=== PATIENT | female | born 1980 | race Caucasian/White ===

== ENCOUNTER 2022-11-05 11:17 | Outpatient (CLI) | payer OTHER, SELFPAY ==
--- NOTE | 2022-11-05 11:30 | CRLHL7_ITS ---
For Patients: As a result of the Century Cures Act, medical imaging exams and procedure reports are released immediately into your electronic medical record. You may view this report before your referring provider. If you have questions, please contact your health care provider. BILATERAL SCREENING MAMMOGRAM WITH COMPUTER-AIDED DETECTION AND TOMOSYNTHESIS TECHNIQUE: CC and MLO views were obtained. These mammographic images have been obtained using full-field digital technique. These mammographic images were interpreted with the benefit of computer-aided detection. Breast Tomosynthesis was used in this interpretation. COMPARISON FILM: 12/02/20, Rt Diag. 09/26/20, 09/19/20. FINDINGS: There are scattered areas of fibroglandular density IMPRESSION: There is no radiographic evidence for malignancy. ASSESSMENT: BI-RADS Category 1: Negative RECOMMENDATION: Routine screening mammogram in 1 year. A lay language report of this examination will be provided to the patient. Malik Dean M.D. Diagnostic Radiologist [email or web address] SIVAN/caprice Transcribed: 1:13 p.m. PT/Dictated by: Malik Dean MD @ 11/06/2022 8:49:00 AM (Electronically Signed)
== END 2022-11-05 11:18 | disposition home or self-care (01) ==
LOC: MAMMO 11:17
PROVIDERS: PCP Physician Assistant Medical; Visit Provider Physician Assistant
DX: Z12.31 Encounter for screening mammogram for malignant neoplasm of breast (principal)
CPT/HCPCS: 77063; 77067

== ENCOUNTER 2023-02-19 08:38 | Outpatient (CLI) | payer OTHER, SELFPAY | END 2023-02-19 08:39 | disposition home or self-care (01) | LOC: NFLDREF 02-21 07:42 | PROVIDERS: PCP Physician Assistant Medical; Referring Provider Physician Assistant Medical; Visit Provider Physician Assistant Medical | DX: Z00.00 Encounter for general adult medical examination without abnormal findings (principal); D64.9 Anemia, unspecified; F41.1 Generalized anxiety disorder; K58.9 Irritable bowel syndrome, unspecified; F41.9 Anxiety disorder, unspecified; K59.09 Other constipation | CPT/HCPCS: 80053; 80061; 82607; 83540; 83550; 84443 ==

== ENCOUNTER 2023-07-23 14:55 | Outpatient (CLI) | payer OTHER, SELFPAY | END 2023-07-23 14:56 | disposition home or self-care (01) | PROVIDERS: PCP Physician Assistant Medical; Visit Provider Emergency Medicine | DX: E61.1 Iron deficiency (principal); R53.83 Other fatigue; E53.8 Deficiency of other specified B group vitamins; D64.9 Anemia, unspecified; R30.0 Dysuria; F41.1 Generalized anxiety disorder | CPT/HCPCS: 80053; 82306; 82607; 82728; 82746; 83540; 83550; 86618; 87086 ==

== ENCOUNTER 2023-08-12 12:48 | Outpatient (CLI) | payer OTHER, SELFPAY ==
--- NOTE | 2023-08-12 13:00 | CRLHL7_ITS ---
For Patients: As a result of the Century Cures Act, medical imaging exams and procedure reports are released immediately into your electronic medical record. You may view this report before your referring provider. If you have questions, please contact your health care provider. INDICATION: Iron deficiency anemia COMPARISON: CT 03/20/2022, pelvic ultrasound 09/26/2021 TECHNIQUE: TA: Multiple transverse and longitudinal transabdominal images of the pelvis are performed using the distended bladder as an acoustic window. TV: Transvaginal ultrasound of the pelvis was performed to better visualize the genitourinary organs, such as the ovaries and/or endometrium. FINDINGS: Reported last menstrual period: 07/24/2023. The uterus is normal in size and position and measures 8.1 x 4.8 x 5.8 cm. No uterine masses. The endometrial stripe measures 1.3 cm in double thickness. No endometrial masses. The cervix is normal. The right ovary measures 3.6 x 1.9 x 2.7 cm. Right paraovarian cyst measures 1.4 x 0.8 x 0.9 cm. No worrisome solid or cystic lesion. There is normal arterial and venous color Doppler flow. The left ovary measures 4.2 x 2.0 x 2.9 cm. 3.0 x 1.6 x 2.1 cm cyst with lace-like internal echoes, consistent with a hemorrhagic cyst. These are considered physiologic at this size in a patient of this age. There is normal arterial and venous color Doppler flow. No free fluid. IMPRESSION: Normal pelvic ultrasound. Dictated by Fabi Salter MD @ 08/14/2023 11:20:59 AM (Electronically Signed)
== END 2023-08-12 12:49 | disposition home or self-care (01) ==
LOC: US 12:49
PROVIDERS: PCP Physician Assistant Medical; Visit Provider Emergency Medicine
DX: D50.9 Iron deficiency anemia, unspecified (principal); N92.0 Excessive and frequent menstruation with regular cycle
CPT/HCPCS: 76830; 76856

== ENCOUNTER 2023-09-01 08:45 | Outpatient (RCR) | payer OTHER, SELFPAY ==
--- NOTE | 2023-08-17 09:21 | URNOTE ---
Request received for authorization for?Iron Sucrose (Venofer) (J1756). Prior authorization is not required per [facility] Case#[id number]. Request for Ferumoxytol (Feraheme) (Q0138) was denied by [facility] Ref# [id number], see scanned letter.
[2023-08-18 10:00] VITALS: BP 99/51; PULSE 53; RESP 16; TEMP 36.7
[2023-08-18] MEDS: IRON SUCROSE COMPLEX 200 MG in 0.9 % SODIUM CHLORIDE 100 ml 440 MG IVPB (10:23)
[2023-08-18 11:15] VITALS: BP 107/71; PULSE 53
[2023-08-18] MEDS: 0.9 % SODIUM CHLORIDE 250 ml IV (15:43)
[2023-08-18] MEDS: SODIUM CHLORIDE 0.9 % (FLUSH) 10 ML SYRINGE IVF (15:44)
[2023-08-24 11:13] VITALS: BP 100/61; PULSE 54; RESP 16; TEMP 36.7; O2SAT 100
[2023-08-24] MEDS: IRON SUCROSE COMPLEX 200 MG in 0.9 % SODIUM CHLORIDE 100 ml 440 MG IVPB (11:47)
[2023-08-24] MEDS: SODIUM CHLORIDE 0.9 % (FLUSH) 10 ML SYRINGE IVF (11:47)
[2023-08-24] MEDS: 0.9 % SODIUM CHLORIDE 250 ml IV (11:47)
[2023-08-26 13:46] VITALS: BP 95/47; PULSE 49; RESP 16; TEMP 36.4; O2SAT 100
[2023-08-26] MEDS: 0.9 % SODIUM CHLORIDE 250 ml IV (14:04)
[2023-08-26] MEDS: IRON SUCROSE COMPLEX 200 MG in 0.9 % SODIUM CHLORIDE 100 ml 440 MG IVPB (14:04)
[2023-08-26] MEDS: SODIUM CHLORIDE 0.9 % (FLUSH) 10 ML SYRINGE IVF (14:04)
[2023-08-26 14:40] VITALS: BP 101/51; PULSE 51; RESP 16; TEMP 36.6; O2SAT 99
[2023-08-28 10:00] VITALS: BP 93/49; PULSE 47; RESP 16; TEMP 36.1; O2SAT 100
[2023-08-28] MEDS: IRON SUCROSE COMPLEX 200 MG in 0.9 % SODIUM CHLORIDE 100 ml 440 MG IVPB (10:11)
[2023-08-28] MEDS: SODIUM CHLORIDE 0.9 % (FLUSH) 10 ML SYRINGE IVF (10:12)
[2023-08-28 11:15] VITALS: BP 101/62; PULSE 45; RESP 15; TEMP 36.6; O2SAT 100
[2023-09-01 08:41] VITALS: BP 109/70; PULSE 50; RESP 16; TEMP 36.4; O2SAT 100
[2023-09-01] MEDS: IRON SUCROSE COMPLEX 200 MG in 0.9 % SODIUM CHLORIDE 100 ml 440 MG IVPB (09:04)
[2023-09-01] MEDS: SODIUM CHLORIDE 0.9 % (FLUSH) 10 ML SYRINGE IVF (09:06)
[2023-09-01] MEDS: 0.9 % SODIUM CHLORIDE 250 ml IV (09:06)
[2023-09-01 09:32] VITALS: BP 101/64; PULSE 46; RESP 16; TEMP 36.5; O2SAT 100
[2023-09-01 10:15] VITALS: BP 108/70; PULSE 47; RESP 16; TEMP 37.1; O2SAT 100
== END 2024-02-14 23:59 | disposition home or self-care (01) ==
LOC: CCIC 08:45
PROVIDERS: PCP Emergency Medicine; Referring Provider Physician Assistant Medical; Visit Provider Clinical Nurse Specialist
DX: D50.9 Iron deficiency anemia, unspecified (principal)
CPT/HCPCS: 96374; J1756; J7050

== ENCOUNTER 2023-11-27 11:59 | Outpatient (CLI) | payer OTHER, SELFPAY | END 2023-11-27 12:00 | disposition home or self-care (01) | PROVIDERS: PCP Emergency Medicine; Visit Provider Emergency Medicine | DX: E61.1 Iron deficiency (principal); E53.8 Deficiency of other specified B group vitamins | CPT/HCPCS: 82607; 82728 ==

== ENCOUNTER 2023-12-04 09:11 | Outpatient (CLI) | payer OTHER, SELFPAY ==
--- NOTE | 2023-12-04 09:15 | CRLHL7_ITS ---
For Patients: As a result of the Century Cures Act, medical imaging exams and procedure reports are released immediately into your electronic medical record. You may view this report before your referring provider. If you have questions, please contact your health care provider. BILATERAL SCREENING MAMMOGRAM WITH COMPUTER-AIDED DETECTION AND TOMOSYNTHESIS TECHNIQUE: CC and MLO views were obtained. These mammographic images have been obtained using full-field digital technique. These mammographic images were interpreted with the benefit of computer-aided detection. Breast Tomosynthesis was used in this interpretation. COMPARISON FILM: 11/05/22, 10/01/21, 09/19/20. FINDINGS: The breasts are heterogeneously dense, which may obscure small masses. IMPRESSION: There is no radiographic evidence for malignancy. ASSESSMENT: BI-RADS Category 1: Negative RECOMMENDATION: Routine screening mammogram in 1 year. A lay language report of this examination will be provided to the patient. Malik Dean M.D. Diagnostic Radiologist [email or web address] SP/Dictated by: Malik Dean MD @ 12/04/2023 9:55:00 AM (Electronically Signed)
== END 2023-12-04 09:12 | disposition home or self-care (01) ==
LOC: MAMMO 09:11
PROVIDERS: PCP Emergency Medicine; Visit Provider Emergency Medicine
DX: Z12.31 Encounter for screening mammogram for malignant neoplasm of breast (principal); R92.2 Inconclusive mammogram
CPT/HCPCS: 77063; 77067

== ENCOUNTER 2023-12-28 18:19 | Outpatient (CLI) | payer OTHER, SELFPAY | END 2023-12-28 18:20 | disposition home or self-care (01) | LOC: LKVREF 18:19 | PROVIDERS: PCP Emergency Medicine; Visit Provider Physician Assistant | DX: R10.9 Unspecified abdominal pain (principal) | CPT/HCPCS: 87086 ==

== ENCOUNTER 2024-01-19 08:32 | Outpatient (CLI) | payer OTHER, SELFPAY ==
--- NOTE | 2024-01-19 08:45 | US_ITS ---
Patient: SHASHI KENYON Facility:?[facility] Patient ID:?[id number] Site Patient ID:?[id number]. Site :?[id number] Study:?US-Pelvis TRANSVAGINAL-01/19/2024 9:03:15 AM Ordering Physician:AKOSUA MCKAY Final Report: Indication: Unspecified abdominal pain TECHNIQUE: Transvaginal pelvic ultrasound with grayscale and duplex Doppler images. FINDINGS: Uterus is anteverted and measures 8.3 x 4.4 x 4.7 cm. There is an IUD that appears appropriately positioned within the uterus. Both ovaries appear normal and have normal color and spectral Doppler flow. No adnexal mass or free fluid. IMPRESSION: 1. Normal pelvic ultrasound. 2. IUD appears appropriately positioned. Dictated by Angel Viramontes MD @ 01/19/2024 2:17:01 PM Signed by:?Angel Viramontes MD @01/19/2024 2:17:01 PM (Electronic Signature)
== END 2024-01-19 08:33 | disposition home or self-care (01) ==
LOC: US 08:33
PROVIDERS: PCP Emergency Medicine; Visit Provider Physician Assistant
DX: R10.9 Unspecified abdominal pain (principal)
CPT/HCPCS: 76830; 93976

== ENCOUNTER 2024-01-20 10:24 | Outpatient (CLI) | payer OTHER, SELFPAY | END 2024-01-20 10:25 | disposition home or self-care (01) | LOC: NFLDREF 01-22 06:40 | PROVIDERS: PCP Emergency Medicine; Referring Provider Emergency Medicine; Visit Provider Emergency Medicine | DX: R19.7 Diarrhea, unspecified (principal) | CPT/HCPCS: 87045; 87046; 87427; 87798 ==

== ENCOUNTER 2024-03-22 19:47 | Inpatient (IN) | payer OTHER, SELFPAY ==
[2024-03-22 19:54] VITALS: BP 125/76; PULSE 58; RESP 16; TEMP 36.6; O2SAT 100; BMI 21.6
--- NOTE | 2024-03-22 20:11 | CRLHL7_ITS ---
For Patients: As a result of the Century Cures Act, medical imaging exams and procedure reports are released immediately into your electronic medical record. You may view this report before your referring provider. If you have questions, please contact your health care provider. INDICATION: Diffuse abdomen pain TECHNIQUE: CT Abdomen and pelvis with i.v. contrast. Coronal and sagittal reformats were obtained. CONTRAST: 64 mL Isovue 370 COMPARISON: None FINDINGS: Lower chest: Unremarkable. Liver: Multiple liver cysts are present, measuring up to 2 cm in maximal dimension. A right posterior dome liver lesion is noted, measuring 2 cm in maximal dimension. Spleen: Unremarkable. Pancreas: Unremarkable. Gallbladder: Unremarkable. Kidney: Unremarkable. No kidney or ureteral stones or obstruction seen. Adrenal: Unremarkable. Bowel: There is a dilated segment of small bowel measuring 3 cm in the periumbilical region that has feculent material. A small bowel anastomotic staple line is present in the right lower quadrant. The appendix is not visualized. Vascular: Unremarkable. Lymph: Unremarkable. Peritoneum: Unremarkable. No pneumoperitoneum is seen. No significant ascites is noted. Pelvis: An IUD is present in the uterine cavity near the fundus with no identified complications. Soft tissue: Unremarkable. Bone: Unremarkable for age. IMPRESSIONS: 1. There is a dilated segment of small bowel measuring 3 cm in the periumbilical region that has feculent material. Clinical and imaging follow-up is recommended to exclude early or partial small bowel obstruction. 2. A right posterior dome liver lesion is noted, measuring 2 cm in maximal dimension. In accordance with ACR Guidelines, further characterization with outpatient liver MRI or biopsy is recommended. Dictated by Inocente Trevizo MD @ 03/22/2024 10:21:36 PM Please note that all CT scans at this facility use dose modulation, iterative reconstruction, and/or weight-based dosing when appropriate to reduce radiation dose to as low as reasonably achievable. Dictated by: Inocente Trevizo MD @ 03/22/2024 22:21:40 (Electronically Signed)
--- NOTE | 2024-03-22 20:29 | ED_ITS ---
HPI - General Adult General Chief complaint: Abdominal Pain Stated complaint: Bowel obstruction Time Seen by Provider: 03/22/24 20:00 Source: patient Mode of arrival: ambulatory Limitations: no limitations History of Present Illness HPI narrative: 43-year-old female coming in today complaining of abdominal pain that started this morning. Pain was coming in waves within the last several hours has become constant. It is located time down the left side of the abdomen. It is very consistent with pain she has had in the past when she has had small bowel obstructions, of which she has had several. Her last 1 was in 2021. This did resolve with conservative management. Patient denies vomiting but feels nauseated. She had a bowel movement approximately 5 hours ago. She denies any urinary symptoms. She denies any fevers or chills. Related Data Home Medications ?Medication ?Instructions ?Recorded ?Confirmed cholecalciferol (vitamin D3) 25 1,000 unit PO DAILY 02/19/23 01/19/24 mcg (1,000 unit) tablet Previous Rx's ?Medication ?Instructions ?Recorded vitamin B complex and vitamin C 1 cap PO QDAY #90 caps 08/06/22 no.20-folic acid 1 mg capsule (Triphrocaps) hyoscyamine sulfate 0.125 mg 0.125 mg PO BID-QID PRN dyspepsia 02/19/23 sublingual tablet #270 tabs sertraline 100 mg tablet 100 mg PO DAILY #90 tabs 02/19/23 Allergies Allergy/AdvReac Type Severity Reaction Status Date / Time fluconazole [From Diflucan] Allergy Severe Blister Verified 03/22/24 20:52 Review of Systems Status of ROS: Reports: 10 or more systems reviewed and unremarkable except as noted in History and below [facility] Medical History Low back pain ?M54.50 - Low back pain, unspecified (ICD-10) Exposure to body fluid ?Z77.21 - Contact with and (suspected) exposure to potentially hazardous body fluids (ICD-10) Diarrhea ?R19.7 - Diarrhea, unspecified (ICD-10) Abdominal pain ?R10.9 - Unspecified abdominal pain (ICD-10) Menorrhagia ?N92.0 - Excessive and frequent menstruation with regular cycle (ICD-10) Iron deficiency anemia ?D50.9 - Iron deficiency anemia, unspecified (ICD-10) Chronic abdominal pain ?R10.9 - Unspecified abdominal pain (ICD-10) ?G89.29 - Other chronic pain (ICD-10) Iron deficiency ?E61.1 - Iron deficiency (ICD-10) Femur fracture ?S72.90XA - Unspecified fracture of unspecified femur, initial encounter for closed fracture (ICD-10) B12 deficiency ?E53.8 - Deficiency of other specified B group vitamins (ICD-10) Abdominal wall pain ?R10.9 - Unspecified abdominal pain (ICD-10) Constipation ?K59.00 - Constipation, unspecified (ICD-10) Hx stress fracture ?Z87.312 - Personal history of (healed) stress fracture (ICD-10) Hematuria (2020) ?R31.9 - Hematuria, unspecified (ICD-10) Twin ?Z37.9 - Outcome of delivery, unspecified (ICD-10) Stress fracture of femur ?M84.353A - Stress fracture, unspecified femur, initial encounter for fracture (ICD-10) Pelvic adhesions ?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.6 - Female pelvic peritoneal adhesions (postinfective) (ICD-10) Major depressive disorder ?F32.9 - Major depressive disorder, single episode, unspecified (ICD-10) Irritable bowel syndrome ?K58.9 - Irritable bowel syndrome without diarrhea (ICD-10) History of small bowel obstruction (2019) ?Z87.19 - Personal history of other diseases of the digestive system (ICD-10) Generalized anxiety disorder ?F41.1 - Generalized anxiety disorder (ICD-10) Gastroesophageal reflux disease ?K21.9 - Gastro-esophageal reflux disease without esophagitis (ICD-10) Anemia ?D64.9 - Anemia, unspecified (ICD-10) Surgical History History of ?Z98.891 - History of uterine scar from previous surgery (ICD-10) Status post repair of ventral hernia ?Z98.890 - Other specified postprocedural states (ICD-10) ?Z87.19 - Personal history of other diseases of the digestive system (ICD-10) Status post exploratory laparotomy ?Z98.890 - Other specified postprocedural states (ICD-10) Family History Family/Other FH: mental illness Family/Other Alcohol dependence Mother High cholesterol Brother Addiction 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 Nonsmoker. Smoking Status: Never smoker Do you use any of these nicotine containing products: None Second hand tobacco smoke exposure: No How often do you have a drink containing alcohol: never AUDIT-C Alcohol total score: 0 Non-prescribed substance use: denies use Little interest or pleasure in doing things: not at all Feeling down, depressed, or hopeless: not at all service: No Exam Narrative: Exam Narrative: Thin, well-developed patient in no acute distress. Alert and oriented. Answers questions appropriately. Mood and affect are appropriate. Thoughts are goal oriented and rational. No tangential or magical thinking noted. Patient speaks in full sentences without needing to catch her breath. HEENT: Normocephalic atraumatic. Pupils are equally round reactive to light. Extraocular muscles are intact. Conjunctivae are moist without any icterus noted. Moist mucous membranes. Posterior pharynx is normal. Neck is soft without any lymphadenopathy or thyromegaly. No masses are appreciated. Cardiovascular: Heart is regular rate and rhythm S1 and S2 are present without any murmurs. Lungs: Clear to auscultation bilaterally no wheezes rhonchi or rales are appreciated. Patient takes deep breaths without any discomfort. Abdomen: Soft and nondistended with hypoactive bowel sounds. She has mild diffuse tenderness. Extremities: Bilateral lower extremities are without edema. Skin: Well perfused without any obvious rashes. Const: Vital Signs, click to edit/add: Vital Signs - 24 hr 03/22/24 19:54 Temperature 97.8 F Pulse Rate [Pulse Oximeter] 58 L Respiratory Rate 16 Blood Pressure [Ri ght Upper Arm] 125/76 Pulse Oximetry 100 Oxygen Delivery Me thod Room Air Course Course ED Course: Patient received a L of normal saline and 0.5 mg of IV Dilaudid. Lab work was entirely unremarkable. CT scan showing a dilated segment of small bowel consistent with early or partial small bowel obstruction. Patient was feeling better but still uncomfortable after Dilaudid. Given the amount of discomfort she has in and her history of recurrent small-bowel obstruction I do recommend admission at this time. Patient was in agreement with this. Discussed patient with Dr. Maza who graciously accepts the patient for admission. Vital Signs Vital signs: Initial Vital Signs Temperature 97.8 F 03/22/24 19:54 Temperature Source Temporal Artery Scan 03/22/24 19:54 Pulse Rate 58 L 03/22/24 19:54 Respiratory Rate 16 03/22/24 19:54 Blood Pressure 125/76 03/22/24 19:54 Blood Pressure Mean 92 03/22/24 19:54 Blood Pressure Position Sitting 03/22/24 19:54 Pulse Oximetry 100 03/22/24 19:54 Oxygen Delivery Method Room Air 03/22/24 19:54 Vital Signs Temperature 97.8 F 03/22/24 19:54 Pulse Rate 58 L 03/22/24 19:54 Respiratory Rate 16 03/22/24 19:54 Blood Pressure 125/76 03/22/24 19:54 Pulse Oximetry 100 03/22/24 19:54 Oxygen Delivery Method Room Air 03/22/24 19:54 Temperature 97.8 F 03/22/24 19:54 Pulse Rate 58 L 03/22/24 19:54 Respiratory Rate 16 03/22/24 19:54 Blood Pressure 125/76 03/22/24 19:54 Pulse Oximetry 100 03/22/24 19:54 Oxygen Delivery Method Room Air 03/22/24 19:54 Medications Administered Medications: Discontinued Medications Generic Name Dose Route Start Last Admin Trade Name Freq PRN Reason Stop Dose Admin Hydromorphone HCl 0.5 mg 03/22/24 20:31 03/22/24 20:45 Hydromorphone 0.5 Mg/0.5 Ml Inj IVP 03/22/24 20:32 0.5 mg ONCE ONE Administration Sodium Chloride 1,000 mls @ 1,000 mls/hr 03/22/24 20:45 03/22/24 21:55 0.9 % Sodium Chloride 1000 Ml IV 03/22/24 21:44 Infused .Q1H CANDY Infusion Medical Decision Making MDM Narrative Medical decision making narrative: 43-year-old female with a early small-bowel obstruction. Patient will be admitted for further management. Lab Data Lab results reviewed: Yes I reviewed the patient's lab results Labs: Lab Results 03/22/24 Range/Units 20:24 WBC 8.01 (4.50-11.00) K/uL RBC 4.05 (4.00-5.20) m/uL Hgb 12.7 (12.0-16.0) gm/dL Hct 39.5 (33.0-51.0) % MCV 98 (80-100) fL MCH 31 (26-34) pg MCHC 32 (32-36) gm/dL RDW Coeff of Jono 12.1 (11.5-15.5) % Plt Count 155 (140-440) K/uL Neut % (Auto) 71.9 (42.0-72.0) % Lymph % (Auto) 20.0 (20-44) % [place] % (Auto) 6.9 (0.0-11.0) % Eos % (Auto) 0.9 (0.0-7.0) % Baso % (Auto) 0.2 (0.0-3.0) % Neut # (Auto) 5.76 (1.7-7.0) K/uL Lymph # (Auto) 1.60 (0.90-2.90) K/uL [place] # (Auto) 0.60 (0.00-0.90) K/UL Eos # (Auto) 0.07 (0.00-0.50) K/uL Baso # (Auto) 0.02 (0.00-0.30) K/uL Abs Immat Gran (auto) 0.01 (0.00-0.30) K/uL Imm/Tot Granulo (auto) 0.1 % Sodium 141 (135-149) mmol/L Potassium 4.4 (3.6-5.1) mmol/L Chloride 105 (96-114) mmol/L Carbon Dioxide 31 (20-32) mmol/L Anion Gap 5 L (7-15) mEq/L BUN 16 (5-24) mg/dL Creatinine 0.8 (0.5-1.5) mg/dL Estimated Creat Clear 80.75 Estimated GFR 93 ml/min Glucose 91 (60-115) mg/dL Lactate 1.2 (0.5-1.9) mmol/L Calcium 9.5 (8.4-10.6) mg/dL Total Bilirubin 0.7 (0.1-1.5) mg/dL Direct Bilirubin 0.4 (0.0-0.5) mg/dL AST 32 (12-35) U/L ALT 23 (4-35) U/L Alkaline Phosphatase 58 (40-150) U/L Troponin I 0.03 (0.01-0.04) ng/mL C-Reactive Protein < 0.5 L (0.5-1.0) mg/dL Total Protein 7.7 (6.0-8.3) g/dL Albumin 4.7 (3.3-5.0) g/dL Lipase 107 (23-300) U/L Urine Color Yellow (Yellow) Urine Appearance Clear (Clear) Urine pH 6.0 (5.0-8.5) Ur Specific [place] 1.010 (1.000-1.030) Urine Protein Negative (Negative) Urine Glucose (UA) Negative (Negative) Urine Ketones Negative (Negative) Urine Blood Negative (Negative) Urine Nitrite Negative (Negative) Urine Bilirubin Negative (Negative) Urine Urobilinogen 0.2 (0.2-1.0) Ur Leukocyte Esterase Negative (Negative) Urine RBC 0-2 (0-2) Urine WBC 0-2 (0-5) Ur Squamous Epith Cells Few (None-Few) Urine Bacteria None (None) Urine HCG, Qual Negative (Negative) Imaging Data CT scan - abdomen: Attestation: I have reviewed the pertinent imaging results. Radiologist's impression: Procedure(s): CT abdomen pelvis w con Accession Number(s): [id number] cc: Layla Brown M.D.; Suzie Melissa M.D.~ For Patients: As a result of the 21st Century Cures Act, medical imaging exams and procedure reports are released immediately into your electronic medical record. You may view this report before your referring provider. If you have questions, please contact your health care provider. INDICATION: Diffuse abdomen pain TECHNIQUE: CT Abdomen and pelvis with i.v. contrast. Coronal and sagittal reformats were obtained. CONTRAST: 64 mL Isovue 370 COMPARISON: None FINDINGS: Lower chest: Unremarkable. Liver: Multiple liver cysts are present, measuring up to 2 cm in maximal dimension. A right posterior dome liver lesion is noted, measuring 2 cm in maximal dimension. Spleen: Unremarkable. Pancreas: Unremarkable. Gallbladder: Unremarkable. Kidney: Unremarkable. No kidney or ureteral stones or obstruction seen. Adrenal: Unremarkable. Bowel: There is a dilated segment of small bowel measuring 3 cm in the periumbilical region that has feculent material. A small bowel anastomotic staple line is present in the right lower quadrant. The appendix is not visualized. Vascular: Unremarkable. Lymph: Unremarkable. Peritoneum: Unremarkable. No pneumoperitoneum is seen. No significant ascites is noted. Pelvis: An IUD is present in the uterine cavity near the fundus with no identified complications. Soft tissue: Unremarkable. Bone: Unremarkable for age. IMPRESSIONS: 1. There is a dilated segment of small bowel measuring 3 cm in the periumbilical region that has feculent material. Clinical and imaging follow-up is recommended to exclude early or partial small bowel obstruction. 2. A right posterior dome liver lesion is noted, measuring 2 cm in maximal dimension. In accordance with ACR Guidelines, further characterization with outpatient liver MRI or biopsy is recommended. Discharge Plan Discharge Clinical Impression: SBO (small bowel obstruction) Patient Disposition: Admitted As Observation Condition: Stable Prescriptions: No Action cholecalciferol (vitamin D3) 25 mcg (1,000 unit) tablet 1,000 unit PO DAILY hyoscyamine sulfate 0.125 mg tablet, sublingual 0.125 mg PO BID-QID PRN (Reason: dyspepsia) Qty: 270 0RF sertraline 100 mg tablet 100 mg PO DAILY Qty: 90 3RF Triphrocaps 1 mg capsule 1 cap PO QDAY Qty: 90 3RF Follow Up/Referrals: Suzie Melissa MD [Primary Care Provider] -
[2024-03-22 20:34] LABS: Lactate* 1.2 mmol/L (0.5-1.9)
[2024-03-22 20:37] LABS: Basophils Absolute Auto 0.02 K/uL (0.00-0.30); Basophils Percent Auto 0.2 % (0.0-3.0); Eosinophils Absolute Auto 0.07 K/uL (0.00-0.50); Eosinophils Percent Auto 0.9 % (0.0-7.0); Hematocrit 39.5 % (33.0-51.0); Hemoglobin* 12.7 gm/dL (12.0-16.0); Immature Granulocytes Abs Auto 0.01 K/uL (0.00-0.30); Immature Granulocytes Pct Auto 0.1 %; Mean Corpuscular HGB Conc 32 gm/dL (32-36); Mean Corpuscular Hemoglobin 31 pg (26-34); Mean Corpuscular Volume 98 fL (80-100); Monocytes Percent Auto 6.9 % (0.0-11.0); Neutrophils Absolute Auto 5.76 K/uL (1.7-7.0); Neutrophils Percent Auto 71.9 % (42.0-72.0); Platelet Count* 155 K/uL (140-440); RDW Coefficient of Variation % 12.1 % (11.5-15.5); Red Blood Count 4.05 m/uL (4.00-5.20); White Blood Count* 8.01 K/uL (4.50-11.00)
[2024-03-22 20:39] LABS: Appearance Urine Clear (Clear); Bilirubin Urine Negative (Negative); Blood Urine Negative (Negative); Color Urine Yellow (Yellow); Glucose Urine Negative (Negative); Ketones Urine Negative (Negative); Leukocyte Esterase Urine Negative (Negative); Nitrite Urine Negative (Negative); Protein Urine Negative (Negative); Urobilinogen Urine 0.2 (0.2-1.0)
[2024-03-22] MEDS: HYDROmorphone 0.5 mg/0.5 ml inj IVP (20:45)
[2024-03-22] MEDS: 0.9 % SODIUM CHLORIDE 1000 ml 1,000 ML IV (20:45)
[2024-03-22 20:57] LABS: Slide Review Reflex No; Ur HCG Qualitative* Negative (Negative)
[2024-03-22 20:58] LABS: RBC Urine 0-2 (0-2); Squamous Epithelial Cell Urine Few (None-Few); WBC Urine 0-2 (0-5)
[2024-03-22 21:29] LABS: Chloride* 105 mmol/L (96-114)
[2024-03-22 21:30] LABS: Albumin* 4.7 g/dL (3.3-5.0); Potassium* 4.4 mmol/L (3.6-5.1); Sodium* 141 mmol/L (135-149)
[2024-03-22 21:33] LABS: Anion Gap 5 mEq/L (7-15); Aspartate Amino Transferase* 32 U/L (12-35); Bilirubin Direct* 0.4 mg/dL (0.0-0.5); Bilirubin Total* 0.7 mg/dL (0.1-1.5); Blood Urea Nitrogen* 16 mg/dL (5-24); Carbon Dioxide* 31 mmol/L (20-32); Creatinine* 0.8 mg/dL (0.5-1.5); Est. Creatinine Clearance* 80.75; Estimated Glomerular Filt Rate 93 ml/min; Total Protein* 7.7 g/dL (6.0-8.3)
[2024-03-22 21:34] LABS: Alanine Aminotransferase* 23 U/L (4-35); Alkaline Phosphatase* 58 U/L (40-150); Calcium* 9.5 mg/dL (8.4-10.6); Glucose* 91 mg/dL (60-115); Lipase* 107 U/L (23-300)
[2024-03-22 21:43] LABS: Troponin I* 0.03 ng/mL (0.01-0.04)
[2024-03-22 21:44] LABS: C Reactive Protein* < 0.5 mg/dL (0.5-1.0)
[2024-03-22 22:57] VITALS: BP 110/61; RESP 16; TEMP 36.6; O2SAT 98; BMI 22.5
[2024-03-22 23:12] VITALS: RESP 16; O2SAT 98
[2024-03-22 23:31] VITALS: O2SAT 98
[2024-03-23 02:11] VITALS: BP 103/56; RESP 16; TEMP 36.6; O2SAT 98
[2024-03-23] MEDS: LACTATED RINGERS 1000 ML 1,000 ML 75 ML IV (03:14)
--- NOTE | 2024-03-23 04:49 | W.PM.THH&P_ITS ---
Telehealth- H&P: HPI History of Present Illness Date Seen: 03/23/24 Chief complaint: Bowel obstruction Narrative: Jennifer Malhotra is seen as an Interactive Telehealth visit. Jennifer Malhotra is a 43 year old male who is admitted through the emergency room. She is seen in [facility] with the assistance of nursing staff. She tells me she started having abdominal pain early in the morning. It is progressively getting worse. Is the same type of pain she has had with multiple bowel obstructions in the past. It got to the point that she felt that she needed to come in. Her last episode similar to this was in 2021. She has been treated the last couple times with conservative therapy. No fevers no chills no chest pain no shortness of breath. Patient declined a NG tube. She has now been admitted for further evaluation and treatment. She tells me her pain may be a little bit better. She does not have any other complaints of. Review of Systems Narrative: A complete review of systems was performed positive pertinent and negatives in the history of present illness. [facility] Medical History Low back pain ?M54.50 - Low back pain, unspecified (ICD-10) Exposure to body fluid ?Z77.21 - Contact with and (suspected) exposure to potentially hazardous body fluids (ICD-10) Diarrhea ?R19.7 - Diarrhea, unspecified (ICD-10) Abdominal pain ?R10.9 - Unspecified abdominal pain (ICD-10) Menorrhagia ?N92.0 - Excessive and frequent menstruation with regular cycle (ICD-10) Iron deficiency anemia ?D50.9 - Iron deficiency anemia, unspecified (ICD-10) Chronic abdominal pain ?R10.9 - Unspecified abdominal pain (ICD-10) ?G89.29 - Other chronic pain (ICD-10) Iron deficiency ?E61.1 - Iron deficiency (ICD-10) Femur fracture ?S72.90XA - Unspecified fracture of unspecified femur, initial encounter for closed fracture (ICD-10) B12 deficiency ?E53.8 - Deficiency of other specified B group vitamins (ICD-10) Abdominal wall pain ?R10.9 - Unspecified abdominal pain (ICD-10) Constipation ?K59.00 - Constipation, unspecified (ICD-10) Hx stress fracture ?Z87.312 - Personal history of (healed) stress fracture (ICD-10) Hematuria (2020) ?R31.9 - Hematuria, unspecified (ICD-10) Twin ?Z37.9 - Outcome of delivery, unspecified (ICD-10) Stress fracture of femur ?M84.353A - Stress fracture, unspecified femur, initial encounter for fracture (ICD-10) Pelvic adhesions ?N73.6 - Female pelvic peritoneal adhesions (postinfective) (ICD-10) Major depressive disorder ?F32.9 - Major depressive disorder, single episode, unspecified (ICD-10) Irritable bowel syndrome ?K58.9 - Irritable bowel syndrome without diarrhea (ICD-10) History of small bowel obstruction (2019) ?Z87.19 - Personal history of other diseases of the digestive system (ICD-10) Generalized anxiety disorder ?F41.1 - Generalized anxiety disorder (ICD-10) Gastroesophageal reflux disease ?K21.9 - Gastro-esophageal reflux disease without esophagitis (ICD-10) Anemia ?D64.9 - Anemia, unspecified (ICD-10) Surgical History History of ?Z98.891 - History of uterine scar from previous surgery (ICD-10) Status post repair of ventral hernia ?Z98.890 - Other specified postprocedural states (ICD-10) ?Z87.19 - Personal history of other diseases of the digestive system (ICD-10) Status post exploratory laparotomy ?Z98.890 - Other specified postprocedural states (ICD-10) Family History Family/Other FH: mental illness Family/Other Alcohol dependence Mother High cholesterol Brother Addiction Social History Narrative: 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 Nonsmoker. What is your current living situation?: I presently have a place to live Problems where you live: no known problems Problems where you live details: n/a In the past 12 months, utilities in danger of being shut off: no In past 12 months, lack of transportation kept you from medical appts, meetings, work, or getting things needed for daily living: no In the past 12 mos, have been you worried that your food would run out before you had money to buy more?: never true In the past 12 mos, the food you bought just didn't last and you didn't have money to buy more?: never true Highest level of school completed/degree received: Master's degree Smoking Status: Never smoker Do you use any of these nicotine containing products: None Second hand tobacco smoke exposure: No How often do you have a drink containing alcohol: never AUDIT-C Alcohol total score: 0 Non-prescribed substance use: denies use How often does anyone, including family, friends and others, physically hurt you : never How often does anyone, including family, friends and others, insult or talk down to you: never How often does anyone, including family, friends and others, threaten you with harm: never How often does anyone, including family, friends and others, scream or curse at you: never Little interest or pleasure in doing things: not at all Feeling down, depressed, or hopeless: not at all service: No Meds Home Medications and Allergies Home Medications ?Medication ?Instructions ?Recorded ?Confirmed ?Type cholecalciferol (vitamin D3) 25 1,000 unit PO DAILY 02/19/23 01/19/24 History mcg (1,000 unit) tablet Allergies Allergy/AdvReac Type Severity Reaction Status Date / Time fluconazole [From Diflucan] Allergy Severe Blister Verified 03/22/24 20:52 Exam Narrative Exam Narrative: Physical Exam GENERAL: ?vital signs reviewed, well developed and nourished, in no distress HEENT: pupils are equal round and reactive to light, extraocular movements are grossly within normal limits and oral mucosa is moist. NECK: Supple without lymphadenopathy or thyromegaly according to nursing staff examination observation HEART: Regular rate and rhythm without any rubs, murmurs, or gallops. LUNGS: Clear to auscultation bilaterally with good air movement throughout ABDOMEN: Observation from nurse assisted exam, abdomen appears soft, nontender, and nondistended with Positive bowel sounds noted. EXTREMITIES: Strength and sensation is observed to be grossly within normal limits in the upper and lower extremities.? No focal strength deficit is observed. SKIN:? Observed warm and dry with color normal Const Vital Signs, click to edit/add: Vital Signs - 24 hr 03/22/24 19:54 03/22/24 22:57 03/22/24 23:12 Temperature 97.8 F 97.8 F Pulse Rate [Pulse Oximeter] 58 L Respiratory Rate 16 16 16 Blood Pressure [Right Arm] 110/61 Blood Pressure [Right Upper Arm] 125/76 Pulse Oximetry 100 98 98 Oxygen Delivery Method Room Air Room Air Room Air 03/22/24 23:31 03/23/24 02:11 Temperature 98 F Pulse Rate [Pulse Oximeter] Respiratory Rate 16 Blood Pressure [Right Arm] 103/56 L Blood Pressure [Right Upper Arm] Pulse Oximetry 98 98 Oxygen Delivery Method Room Air Hospitalist - H&P: Result Labs Labs: Short CBC 03/22/24 Range/Units 20:24 WBC 8.01 (4.50-11.00) K/uL Hgb 12.7 (12.0-16.0) gm/dL Hct 39.5 (33.0-51.0) % Plt Count 155 (140-440) K/uL BMP 03/22/24 20:24 Sodium 141 Potassium 4.4 Chloride 105 Carbon Dioxide 31 BUN 16 Creatinine 0.8 Glucose 91 Calcium 9.5 Cardiac Enzymes 03/22/24 Range/Units 20:24 Troponin I 0.03 (0.01-0.04) ng/mL Liver Function 03/22/24 Range/Units 20:24 Total Bilirubin 0.7 (0.1-1.5) mg/dL Direct Bilirubin 0.4 (0.0-0.5) mg/dL AST 32 (12-35) U/L ALT 23 (4-35) U/L Alkaline Phosphatase 58 (40-150) U/L Albumin 4.7 (3.3-5.0) g/dL Urine 03/22/24 Range/Units 20:24 Urine Color Yellow (Yellow) Urine Appearance Clear (Clear) Urine pH 6.0 (5.0-8.5) Ur Specific Harris 1.010 (1.000-1.030) Urine Protein Negative (Negative) Urine Glucose (UA) Negative (Negative) Assessment and Plan Assessment and plan (1) SBO (small bowel obstruction): Status: Acute (2) Gastroesophageal reflux disease: Status: Acute Plan Small bowel obstruction?seems to be resolving already for tonight we will keep her n.p.o. IV fluids. IV hydromorphone for pain. Patient declining the need for a NG tube. Will continue to treat her conservatively. Further recommendations pending her clinical course. Will repeat laboratory studies in the morning. Otherwise she is fairly healthy. Does not take a lot of medi cations other than Zoloft for anxiety and depression. This will need to be clarified with pharmacy in the morning potentially be reordered. DVT prophylaxis Will plan to use subcutaneous Lovenox. CODE STATUS was reviewed on admission she wishes to be a full code Telehealth: Statement Statement Telehealth Visit: Today's History and Physical is provided via interactive telehealth by Michael Case DO.? Patient is located at [facility].? Provider is located at [facility].? Nursing staff assisted with the patient's exam. The visit being done today meets criteria for a telehealth visit and the patient or patient?s parent/guardian is aware the visit is a telehealth visit. Camera Start Time: 02:12 Camera End Time: 02:23
--- NOTE | 2024-03-23 06:23 | PC.NURSE ---
pleasant and cooperative. indep in room. npo. rating abd pain 2-3/10, declined need for pain medication. no c/o nausea. VSS.
[2024-03-23 08:30] VITALS: BP 101/58; RESP 16; TEMP 36.4; O2SAT 98
--- NOTE | 2024-03-23 10:44 | P.DS_ITS ---
DS: Providers Provider Date Seen: 03/23/24 Date of admission: 03/22/24 23:30 Primary care physician: Suzie Melissa Admitting Clinician: Elvira Maza MD Attending Physician on discharge: Sonya Alonso MD [place] Hospitalist Date of Discharge: 03/23/24 DS: Diagnosis Discharge Diagnosis (1) SBO (small bowel obstruction): Status: Acute Problem details: Patient has had near resolution of her symptoms. She knows this course well. She is agreeable and requesting discharge. High-fiber diet. Continue exercise program. Return red flags discussed. (2) Abdominal wall pain: Status: Acute Problem details: Chronic abdominal wall secondary to multiple surgeries. Gets nerve blocks with the [facility]. (3) Constipation: Status: Acute Problem details: Chronic IBS constipation subtype. (4) Irritable bowel syndrome: Status: Acute Problem details: [facility] (5) Gastroesophageal reflux disease: Status: Acute Problem details: Continue home med regimen DS: Summary Hospital Course Hospital Course: FINAL DIAGNOSIS/FOLLOW UP ISSUES: Recurrent chronic SBO. History of 2 exploratory laps. History of broad ligament hernia. The patient has good connections test GI and her primary care doc. no specific follow-up indicated. BRIEF HOSPITAL COURSE: Patient was admitted overnight. Synopsis of acute inpatient issues are outlined above. Chronic medical conditions with notable findings outlined above. DISCHARGE MEDICATIONS: See Reconciled list - NO SIGNIFICANT CHANGES: Specific instructions to the patient and follow-up are outlined below. REVIEW OF SYSTEMS No new chest pain or dyspnea Pain controlled No voiding difficulties Tolerating diet challenge PHYSICAL EXAM: CONSTITUTIONAL: Happy, sitting up. With no acute distress. VITAL SIGNS: see record. HEENT: Normocephalic, atraumatic. PERRL, EOMI, conjunctivae pink, no scleral icterus. Ears and nose externally normal. Pharynx normal. NECK: No JVD. No carotid bruit, no thyromegaly, no adenopathy. CHEST: Clear to auscultation bilaterally. HEART: S1 and S2 normal. Edema ABDOMEN: Soft, nontender. Normal bowel sounds. MUSCULOSKELETAL: No gross joint deformity or swelling. NEURO: Cranial nerves intact. Grossly intact. No asymmetric findings. SKIN: No rashes, petechiae, concerning changes PSYCHIATRIC: Mood euthymic. DISPOSITION: Home with Time spent on discharge 37 minutes. Status at Discharge Functional status at discharge: independent ambulation Overall status at discharge: patient is progressing back to baseline Time Spent with Patient Time attestation: Total time spent providing and/or coordinating discharge services: Time spent: Greater than 30 minutes Exam Const: Vital Signs, click to edit/add: Vital Signs - 24 hr 03/22/24 19:54 03/22/24 22:57 03/22/24 23:12 Temperature 97.8 F 97.8 F Pulse Rate [Pulse Oximeter] 58 L Respiratory Rate 16 16 16 Blood Pressure [Ri ght Arm] 110/61 Blood Pressure [Ri ght Upper Arm] 125/76 Pulse Oximetry 100 98 98 Oxygen Delivery Me thod Room Air Room Air Room Air 03/22/24 23:31 03/23/24 02:11 Temperature 98 F Pulse Rate [Pulse Oximeter] Respiratory Rate 16 Blood Pressure [Ri ght Arm] 103/56 L Blood Pressure [Ri ght Upper Arm] Pulse Oximetry 98 98 Oxygen Delivery Me thod Room Air DS: Data Data Completed and Pending Labs on day of discharge: Labs from last 24 hours 03/22/24 20:24 WBC 8.01 RBC 4.05 Hgb 12.7 Hct 39.5 MCV 98 MCH 31 MCHC 32 RDW Coeff of Jono 12.1 Plt Count 155 Neut % (Auto) 71.9 Lymph % (Auto) 20.0 Bates % (Auto) 6.9 Eos % (Auto) 0.9 Baso % (Auto) 0.2 Neut # (Auto) 5.76 Lymph # (Auto) 1.60 Bates # (Auto) 0.60 Eos # (Auto) 0.07 Baso # (Auto) 0.02 Abs Immat Gran (auto) 0.01 Imm/Tot Granulo (auto) 0.1 Sodium 141 Potassium 4.4 Chloride 105 Carbon Dioxide 31 Anion Gap 5 L BUN 16 Creatinine 0.8 Estimated Creat Clear 80.75 Estimated GFR 93 Glucose 91 Lactate 1.2 Calcium 9.5 Total Bilirubin 0.7 Direct Bilirubin 0.4 AST 32 ALT 23 Alkaline Phosphatase 58 Troponin I 0.03 C-Reactive Protein < 0.5 L Total Protein 7.7 Albumin 4.7 Lipase 107 Urine Color Yellow Urine Appearance Clear Urine pH 6.0 Ur Specific [place] 1.010 Urine Protein Negative Urine Glucose (UA) Negative Urine Ketones Negative Urine Blood Negative Urine Nitrite Negative Urine Bilirubin Negative Urine Urobilinogen 0.2 Ur Leukocyte Esterase Negative Urine RBC 0-2 Urine WBC 0-2 Ur Squamous Epith Cells Few Urine Bacteria None Urine HCG, Qual Negative Preliminary micro results at discharge 03/22/24 20:24 Urine Culture - Preliminary Urine,Clean Catch Culture in Progress Discharge Plan Discharge Disposition: Home, Self-Care Date of Admission: 03/22/24 23:30 Attending Provider on Discharge: Sonya Alonso Primary Care Provider: Suzie Melissa Condition: Stable Anticipated Discharge Date/Time: 03/23/24 09:21 Discharge Medications: Continued cholecalciferol (vitamin D3) 25 mcg (1,000 unit) tablet 1,000 unit PO DAILY hyoscyamine sulfate 0.125 mg tablet, sublingual 0.125 mg PO BID-QID PRN (Reason: dyspepsia) Qty: 270 0RF sertraline 100 mg tablet 100 mg PO DAILY Qty: 90 3RF Triphrocaps 1 mg capsule 1 cap PO QDAY Qty: 90 3RF Discharge Orders: Discharge Order (Routine); Ordered 03/23/24 Ordered By: Sonya Alonso Patient Education: Bowel Obstruction (DC) Activity Level: No Restrictions Discharge Diet: Regular Follow Up Appointments: Suzie Melissa MD [Primary Care Provider] - Forms: [employer] Info Instructions
== END 2024-03-23 10:15 | disposition home or self-care (01) | DRG 390 ==
LOC: ED 22:42 → MEDSURG 22:59
PROVIDERS: Admitting Provider Family Medicine; Emergency Provider Family Medicine; PCP Emergency Medicine; Visit Provider Family Medicine
DX: K56.609 Unspecified intestinal obstruction, unspecified as to partial versus complete obstruction (principal); K21.9 Gastro-esophageal reflux disease without esophagitis; R10.84 Generalized abdominal pain; K58.1 Irritable bowel syndrome with constipation; F41.1 Generalized anxiety disorder; F32.9 Major depressive disorder, single episode, unspecified
CPT/HCPCS: 36415; 74177; 80048; 80076; 81001; 81025; 83605; 83690; 84484; 85025; 86140; 87086; 99284; J1170; J7030; J7120; Q9967

== ENCOUNTER 2024-04-21 08:45 | Outpatient (CLI) | payer OTHER, SELFPAY ==
--- NOTE | 2024-04-21 08:45 | CRLHL7_ITS ---
For Patients: As a result of the Century Cures Act, medical imaging exams and procedure reports are released immediately into your electronic medical record. You may view this report before your referring provider. If you have questions, please contact your health care provider. INDICATION: 2 cm liver mass TECHNIQUE: Multiplanar imaging of the abdomen was performed without and with 20 cc of Dotarem contrast material IV. COMPARISON: Abdomen/pelvis CT scans of 03/22/2024, 01/19/2024, 06/20/2021 and 09/20/2020 FINDINGS: The liver is normal in size, shape and signal. In liver segment 7 is a 2.2 x 1.2 x 1.2 cm mass which corresponds to the lesion of concern on CT. This is unchanged in size dating back to 09/20/2020. This lesion is hypointense on T1-weighted images, hyperintense on T2-weighted images and demonstrates no diffusion restriction. With IV contrast administration, this lesion demonstrates some nodular centripetal contrast enhancement but does not completely fill with contrast by the time of the final sequence. An atypical hemangioma is suspected. A number of small liver cysts are also demonstrated. The bile ducts are normal in caliber. The spleen, adrenal glands, kidneys and pancreas are within normal limits. No lymphadenopathy is apparent. No intrinsic bowel abnormality is evident. No free fluid is demonstrated. IMPRESSION: 1. 2.2 x 1.2 x 1.2 cm liver segment 7 mass, unchanged since 2019 and likely representing an atypical hemangioma. 2. Small liver cysts. Dictated by Twin Rico MD @ 04/21/2024 8:08:36 PM (Electronically Signed)
== END 2024-04-21 08:46 | disposition home or self-care (01) ==
LOC: MRI 08:45
PROVIDERS: PCP Emergency Medicine; Visit Provider Emergency Medicine
DX: R16.0 Hepatomegaly, not elsewhere classified (principal); K76.89 Other specified diseases of liver; K76.9 Liver disease, unspecified
CPT/HCPCS: 74183; A9575

== ENCOUNTER 2024-09-19 10:14 | Outpatient (CLI) | payer OTHER, SELFPAY | END 2024-09-19 10:15 | disposition home or self-care (01) | PROVIDERS: PCP Emergency Medicine; Visit Provider Physician Assistant | DX: R53.83 Other fatigue (principal); F41.9 Anxiety disorder, unspecified; M54.2 Cervicalgia | CPT/HCPCS: 82306; 82728; 84443 ==

== ENCOUNTER 2024-11-01 15:30 | Outpatient (RCR) | payer OTHER, SELFPAY | END 2025-02-22 07:31 | disposition home or self-care (01) | PROVIDERS: PCP Emergency Medicine; Visit Provider Physician Assistant | DX: M54.2 Cervicalgia (principal); Z51.89 Encounter for other specified aftercare | CPT/HCPCS: 97110; 97140; 97161 ==

== ENCOUNTER 2024-11-17 15:23 | Outpatient (CLI) | payer OTHER, SELFPAY | END 2024-11-17 15:24 | disposition home or self-care (01) | LOC: LKVREF 15:24 | PROVIDERS: PCP Emergency Medicine; Visit Provider Emergency Medicine | DX: M54.2 Cervicalgia (principal) | CPT/HCPCS: 86140 ==

== ENCOUNTER 2024-11-28 18:11 | Outpatient (CLI) | payer OTHER, SELFPAY ==
--- NOTE | 2024-11-28 18:30 | CRLHL7_ITS ---
For Patients: As a result of the Century Cures Act, medical imaging exams and procedure reports are released immediately into your electronic medical record. You may view this report before your referring provider. If you have questions, please contact your health care provider. INDICATION: Neck pain TECHNIQUE: Noncontrast sagittal T1, T2, STIR and axial GRE sequences are provided. No comparisons. FINDINGS: Buddy within the C7 vertebral body. Mild edema within the right C3-4 facet and periarticular soft tissues. The overall stature, alignment and intrinsic marrow signal within the remainder of the cervical spine is within normal limits. Cervical cord is normal. C2-3: Unremarkable. C3-4: Axhn-mc-zqtccait bilateral facet arthropathy that is worse on the right results in minimal right and no left foraminal narrowing. No central canal narrowing. C4-5: Trivial disc osteophyte complex results in no central canal or foraminal narrowing. C5-6, C6-7, C7-T1: Unremarkable. IMPRESSION: 1. Mild edema within the right C3-4 facet and periarticular soft tissues that may be due to reactive or advanced degenerative phenomenon. 2. Milder degenerative changes within the remainder of the cervical spine as outlined above. Dictated by Miguel Balderrama MD @ 11/28/2024 7:11:52 PM (Electronically Signed)
== END 2024-11-28 18:12 | disposition home or self-care (01) ==
PROVIDERS: PCP Emergency Medicine; Visit Provider Emergency Medicine
DX: M54.2 Cervicalgia (principal)
CPT/HCPCS: 72141

== ENCOUNTER 2024-12-14 08:44 | Outpatient (CLI) | payer OTHER, SELFPAY ==
--- NOTE | 2024-12-14 09:00 | CRLHL7_ITS ---
For Patients: As a result of the Century Cures Act, medical imaging exams and procedure reports are released immediately into your electronic medical record. You may view this report before your referring provider. If you have questions, please contact your health care provider. INDICATION: Soft tissue swelling on right side in the area of C3-4. TECHNIQUE: CT soft tissue of the neck was acquired with 66 cc of Isovue 370 IV contrast. COMPARISON: MRI cervical spine November 28, 2024 FINDINGS: There is moderate right C3-4 facet arthropathy with osteophytes and adjacent bony sclerosis, correspond to MRI evident reactive marrow edema. No suspicious lytic lesion or bony erosion in this region. Bilateral vertebral arteries are patent. There is minimal reversal of normal cervical lordosis. Bilateral parotid and submandibular glands are normal in size and attenuation. Pre epiglottic and paraglottic fat planes are maintained. Bilateral jugular veins are patent. No concerning cervical 3 lymphadenopathy. Included lung thakkar are clear. Nonspecific prominence of the extra-axial space in the right CP angle cistern. IMPRESSION: Moderate right C3-4 facet arthropathy. No concerning bony erosion or lytic lesion. No suspicious neck mass or cervical lymphadenopathy. Please note that all CT scans at this facility use dose modulation, iterative reconstruction, and/or weight-based dosing when appropriate to reduce radiation dose to as low as reasonably achievable. Dictated by Ramandeep Kirkpatrick MD @ 12/14/2024 2:56:35 PM (Electronically Signed)
== END 2024-12-14 08:45 | disposition home or self-care (01) ==
LOC: CT 08:44
PROVIDERS: PCP Emergency Medicine; Visit Provider Emergency Medicine
DX: R22.9 Localized swelling, mass and lump, unspecified (principal)
CPT/HCPCS: 70491; Q9967

== ENCOUNTER 2024-12-16 08:40 | Outpatient (CLI) | payer OTHER, SELFPAY ==
--- NOTE | 2024-12-16 08:45 | CRLHL7_ITS ---
For Patients: As a result of the Century Cures Act, medical imaging exams and procedure reports are released immediately into your electronic medical record. You may view this report before your referring provider. If you have questions, please contact your health care provider. BILATERAL SCREENING MAMMOGRAM WITH COMPUTER-AIDED DETECTION AND TOMOSYNTHESIS TECHNIQUE: CC and MLO views were obtained. These mammographic images have been obtained using full-field digital technique. These mammographic images were interpreted with the benefit of computer-aided detection. Breast Tomosynthesis was used in this interpretation. COMPARISON FILM: 12/04/23, 11/05/22, 10/01/21. FINDINGS: The breasts are heterogeneously dense, which may obscure small masses. IMPRESSION: There is no radiographic evidence for malignancy. ASSESSMENT: BI-RADS Category 1: Negative RECOMMENDATION: Routine screening mammogram in 1 year. A lay language report of this examination will be provided to the patient. Malik Dean M.D. Diagnostic Radiologist [email or web address] SP/Dictated by: Malik Dean MD @ 12/21/2024 9:42:00 AM (Electronically Signed)
== END 2024-12-16 08:41 | disposition home or self-care (01) ==
LOC: MAMMO 08:40
PROVIDERS: PCP Emergency Medicine; Visit Provider Emergency Medicine
DX: Z12.31 Encounter for screening mammogram for malignant neoplasm of breast (principal); R92.333 Mammographic heterogeneous density, bilateral breasts
CPT/HCPCS: 77063; 77067

== ENCOUNTER 2025-04-20 07:06 | Outpatient (CLI) | payer OTHER, SELFPAY ==
--- NOTE | 2025-04-20 07:15 | CRLHL7_ITS ---
For Patients: As a result of the 21st Century Cures Act, medical imaging exams and procedure reports are released immediately into your electronic medical record. You may view this report before your referring provider. If you have questions, please contact your health care provider. INDICATION: Dizziness. COMPARISON: None. TECHNIQUE: Multiplanar T1, T2, FLAIR and diffusion-weighted imaging. Post gadolinium T1 weighted sequences. Additional pre and post given sequences of the skullbase and IAC`s. Gadolinium 20 cc IV. FINDINGS: Mild generalized volume loss. Disproportionate dilatation of the ventricular system. CSF flow void within the sylvian aqueduct consistent with hyperdynamic flow. Multi-cystic and mildly FLAIR hyperintense lesion of the pineal gland measures 11 x 8 x 8 mm (transverse by AP by cephalocaudal; best seen on series 5, image 21; series 9, image 20). There is associated mild enhancement. Differential considerations include an pineocytoma or pineal parenchymal tumor of intermediate differentiation or less likely germ-cell tumor. This mass abuts but does not significantly compress the tectum. Normal signal intensity with within the remainder the brain parenchyma. No intracranial hemorrhage. Intracranial vascular flow voids are preserved. No midline shift. Basilar cisterns are patent. No abnormal enhancement or enhancing lesions within the brain parenchyma. Asymmetric collection of CSF signal intensity adjacent to the anterolateral right cerebellum consistent with an incidental arachnoid cyst. Dedicated sequence of the skullbase and IAC`s demonstrates normal course of cranial nerves 7 and 8 from the root entry zone to the fundus of the IAC`s. Normal fluid signal within the cochlea and vestibule. Normal root entry zone of the bilateral trigeminal nerves. No abnormal mass or enhancement within cerebellopontine angles or IAC`s. Bilateral orbits are unremarkable. Normal appearing sella. Visualized paranasal sinuses are unremarkable. Small left mastoid effusion. IMPRESSION: 1. No acute intracranial abnormality 2. Disproportionate dilatation of the ventricular system with a hyperdynamic flow void across the sylvian aqueduct. Additionally, Multi-cystic and mildly FLAIR hyperintense lesion of the pineal gland which abuts detected. 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 Recommend consultation with neurosurgery for follow-up. 3. No abnormal enhancement or enhancing lesions elsewhere. 4. Incidental arachnoid cyst adjacent to the anterolateral right cerebellum. 5. Dedicated sequences of the skull base and IAC`s demonstrates normal course of cranial nerves. No abnormal mass or enhancement 6. Small left mastoid effusion Dictated by Quan Durham MD @ 04/22/2025 6:49:18 AM (Electronically Signed)
--- OUTSIDE RECORDS SUMMARY | 2025-04-21 00:50 | XMS_ITS | Clinical Summary ---
Author Organization [facility] Address [address] [place] [address] Care Team Providers Care Mitten Stitcher Name Role Phone Layla Brown Primary Care Provider [phone] Allergies Active Allergy Reactions Criticality Noted Date Comments Fluconazole Other - Describe In Comment Field 03/12/2017 Blisters & sores in/around mouth Medications sertraline (ZOLOFT) 50 mg tablet Take 1 tablet by mouth once daily. 0 03/12/2017 Active hyoscyamine sublingual (LEVSIN SL) 0.125 mg sublIndications :Generalized abdominal pain Place 1-2 tablets under the tongue every 4 hours if needed. 60 tablet 11 04/08/2017 Active cholecalciferol (VITAMIN D3) 1,000 unit tablet Daily Active omeprazole (PRILOSEC) 40 mg Delayed-Release capsule Take 40 mg by mouth once daily. 12/05/2020 Active cyanocobalamin (VITAMIN B12) 1,[address] 1 Tablet (1,000 mcg) under the tongue once daily. 0 01/29/2021 Active Social History Tobacco Use Types Packs/Day Years Used Date Smoking Tobacco: Former Smokeless Tobacco: Never Tobacco Cessation:Counseling Given: Yes Alcohol Use Standard Drinks/Week Comments Yes 0 (1 standard drink = 0.6 oz pur e alcohol) rare Social Connections Answer Date Recorded Frequency of Communication with Friends and Fami ly Not on file 10/26/2021 Financial Resource Strain Answer Date R ecorded Difficulty of Paying Living Expenses Not on file 10/26/2021 Difficulty of Paying Living Expenses Not on file 10/26/2021 Comments Unknown Sex and Gender Information Value Date Recorded Sex Assigned at Not on file Legal Sex Female 7:40 PM PHOTOGRAPHIC INTELLIGENCE OFFICER Gender Identity Not on file Sexual Orientation Not on file Obstetrics History Last Filed Vital Signs Vital Sign Reading Time Taken Comments Blood Pressure 106/60 01/29/2021 2:52 PM CDT Pulse 56 01/29/2021 2:52 PM CDT Temperature 36.4 C (97.6 F) 05/21/2017 3:36 PM CDT Respiratory Rate - - Oxygen Saturation 100% 01/29/2021 2:52 PM CDT Inhaled Oxygen Concentration - - Weight 63.9 kg (140 lb 12.8 oz) 12/26/2020 1:48 PM PHOTOGRAPHIC INTELLIGENCE OFFICER Height 169 cm (5' 6.54) 03/12/2017 1:40 PM CDT Body Mass Index 22.36 03/12/2017 1:40 PM CDT Plan of Treatment Health Maintenance Due Date Last Done Comments Tdap 1990 Depression screening for age 12+ 1991 HIV for age 15-65 1994 Hepatitis C screening for ag e 18-79 1997 Hepatitis B series for 19+ ( 1 of 3 - 19+ 3-dose series) 1998 Tetanus booster 1999 BMI (ht and wt on same day) for age 18+ 03/12/2018 03/12/2017 Pap test for age 21-65 08/27/2023 , 08/27/2020, 10/30/2016 COVID-19 vaccine series ( - 2023- season) 2024 Colonoscopy through age 75 2024 Lipids for age 45-75 2024 Mammogram for age 45-75 2024 Influenza Vaccine (Season Ended) 2025 Pneumococcal series for age 6-49 Aged Out No longer eligible b ased on patient's age to complete this topic Procedures Procedure Name Priority Date/Time Associated Diagnosis Comments FIRE ADJUSTER THIN PREP PAP SCREEN IMAGED Routine 08/27/2020 12:00 PM PHOTOGRAPHIC INTELLIGENCE OFFICER from Last 3 Months or Most Recently Relevant to Health Maintenance Results * FIRE ADJUSTER THIN PREP PAP SCREEN IMAGED (08/27/2020 12:00 PM PHOTOGRAPHIC INTELLIGENCE OFFICER) Case Report Gynecologic Cytology Report Case: [id number] Authorizing Provider: Estrella Dietrich PA-C Collected: 08/27/2020 1200 Ordering Location: [facility] Received: 08/28/2020 0929 First Screen: Pooja Cabrales Specimen: FIRE ADJUSTER ThinPrep Vial Screening, Cervical/Vaginal 08/31/2020 1:48 PM PHOTOGRAPHIC INTELLIGENCE OFFICER [facility] Contact At Once! [facility] INTERPRETATION/ RESULT NEGATIVE FOR INTRAEPITHELIAL LESION OR MALIGNANCY (NIL) (none) 08/31/2020 1:48 PM PHOTOGRAPHIC INTELLIGENCE OFFICER [facility] at 1348 PHOTOGRAPHIC INTELLIGENCE OFFICER SPECIMEN ADEQUACY Satisfactory for evaluation No endocervical component seen 08/31/2020 1:48 PM PHOTOGRAPHIC INTELLIGENCE OFFICER [facility] HPV REQUEST HPV and PAP 08/31/2020 1:48 PM PHOTOGRAPHIC INTELLIGENCE OFFICER [facility] Date of LMP 08/07/2020 08/31/2020 1:48 PM PHOTOGRAPHIC INTELLIGENCE OFFICER [facility] Last Pap Date 10/30/2016 08/31/2020 1:48 PM PHOTOGRAPHIC INTELLIGENCE OFFICER [facility] Last Pap Result NIL 0 1:48 PM PHOTOGRAPHIC INTELLIGENCE OFFICER [facility] Menstrual Status Hormonally Suppressed 08/31/2020 1:48 PM PHOTOGRAPHIC INTELLIGENCE OFFICER [facility] Comment:IUD Additional Information 08/31/2020 1:48 PM PHOTOGRAPHIC INTELLIGENCE OFFICER [facility] Comment: Interpreted at [facility], Central Laboratory - [address] [place] [address] [address] Automated Review Successful 08/31/2020 1:48 PM PHOTOGRAPHIC INTELLIGENCE OFFICER [facility] Comment:Specimen processed s uccessfully by automated room worker device, ThinPrep Imaging System, [employer] ANCILLARY TESTING FIRE ADJUSTER HPV Ordered, Please see separate report 08/31/2020 1:48 PM PHOTOGRAPHIC INTELLIGENCE OFFICER [facility] Note The pap test is a screening technique, not a diagnostic procedure. It is used primarily to screen for squamous cancers and precursor lesions. Published studies have shown that it is subject to both false negative and false positive results. The pap test should not be used as the sole means to diagnose or exclude pre-malignant and malignant lesions. 08/31/2020 1:48 PM PHOTOGRAPHIC INTELLIGENCE OFFICER [facility] Other (Cervical/Vagina l) 08/27/2020 12:00 PM PHOTOGRAPHIC INTELLIGENCE OFFICER 08/28/2020 9:29 AM PHOTOGRAPHIC INTELLIGENCE OFFICER January Kaur CÁRDENAS PATHOLOGY/CYTOLOGY Final R esult [facility] LAB[facility]ORY [address] [place] [address], from Last 3 Months or Most Recently Relevant to Health Maintenance Care Teams Mitten Stitcher Relationship Specialty Start Date End Date Layla Brown PCP - General Family Practice 03/12/17
== END 2025-04-20 07:07 | disposition home or self-care (01) ==
LOC: MRI 07:07
PROVIDERS: PCP Emergency Medicine; Visit Provider Nurse Practitioner Family
DX: R42 Dizziness and giddiness (principal); G93.0 Cerebral cysts
CPT/HCPCS: 70553; A9575

== ENCOUNTER 2025-09-30 14:43 | Emergency (ER) | payer OTHER, SELFPAY ==
--- OUTSIDE RECORDS SUMMARY | 2025-09-30 14:45 | XMS_ITS | Clinical Summary ---
Author Organization [facility] Address [address] [place] [address] Care Team Providers Care Rda Name Role Phone Elsewhere, Pcp Primary Care Provider Unavailabl e Source Comments Patient records contain information from all sites at [facility]. For routine questions regarding patient records, call [phone] during business hours, M-F 8:00 AM - 5:00 PM Central Time. Record requests for emergency care only can be directed to [phone] at any time.[facility] Allergies Active Allergy Reactions Criticality Noted Date Comments Fluconazole Other (see comments) 02/27/2021 Blisters and sores in and around mouth Medications * This document contains information received from the source organization and may not represent a complete record from that organization. sertraline (ZOLOFT) 100 mg tablet Take 100 mg by mouth daily. 0 Active cyanocobalamin (VITAMIN B12) 1,[address] 1,000 mcg under the tongue daily. 1 Active cholecalciferol (Vitamin D3) 125 mcg (5,000 Unit) tablet Take 125 mcg by mouth daily. 0 Active hyoscyamine (Levsin) 0.125 mg SL tablet MAY TAKE UP TO 2 TABLETS 4 TIMES DAILY. 270 tablet 3 4 Active levonorgestreL (Mirena) 21 mcg/24hr (up to 8 yrs) 52 mg IUD 1 each by intrauterine route continuously. 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 Date Type Department Care Team Description 08/03/2025 11:30 AM CDT Office Visit Department of Neurologic Surgery in [place], [place] [address] [place] [phone] Benito Sorensen M.D., Ph.D. Mass Brain (Primary Dx) 08/03/2025 7:04 AM CDT - 08/03/2025 11:59 PM CDT Hospital Encounter Department of Radiology, [facility] in [place], [place] [address] [place] [address] Benito Sorensen M.D., Ph.D. Mass Brain Discharge Disposition: Home or Self Care 07/27/2025 7:30 AM CDT Clinical Communication Virtual Review in [place], [place] [address] [place] [address] Pre-visit Intake from Last 3 Months Family History Medical History Relation Name Comments Alcohol abuse Brother Mohinder Drug abuse Brother Mohinder Hyperlipidemia (high cholesterol) Brother Mohinder Hypertension Brother Mohinder Ulcerative colitis Brother Mohinder Alcohol abuse Father Bassem Dementia Maternal Grandfather Don Osteoporosis Maternal Grandmother Zaynab Transient ischemic attack Maternal Grandmother Zaynab Anxiety disorder Mother Anni Arthritis Mother Anni Depression Mother Anni Skin cancer Mother Anni removed from ea r Anxiety disorder Mother's Sister Melony Migraines Son Marty Relation Name Status Comments Brother Mohinder Alive Father Bassem Alive Maternal Grandfather Don Alive Maternal Grandmother Zaynab Alive Mother Anni Alive Mother's Sister Melony Alive Son Marty Alive Social History Tobacco Use Types Packs/Day Years Used Date Smoking Tobacco: Never Passive Smoke Exposure: Never Smokeless Tobacco: Never Tobacco Cessation:Counseling Given: Not Answered Alcohol Use Standard Drinks/Week Comments Not Currently 0 (1 standard drink = 0.6 oz pur e alcohol) [facility] Utilities Answer Date Recorded In the past 12 months has e Private[employer]Me, gas, oil, or water [employer] threatened to shut off services in your home? No 04/24/2025 Humiliation, Afraid, Rape, and Kick questionnair e Answer Date Recorded Within the last year, have y ou been afraid of your partner or ex-partner? No 04/18/2022 Within the last year, have y ou been humiliated or emotionally abused in other ways by your partner or ex-partner? No Within the last year, have y ou been kicked, hit, slapped, or otherwise physically hurt by your partner or ex-partner? No 04/18/2022 Within the last year, have y ou been raped or forced to have any kind of sexual activity by your partner or ex-partner? No 04/18/2022 Hunger Vital Sign Answer Date Recorded Within the past 12 months, y ou worried that your food would run out before you got the money to buy more. Never true 04/24/20 Within the past 12 months, t he food you bought just didn't last and you didn't have money to get more. Never true 04/24/2025 PRAPARE - Transportation Answer Date Re corded In the past 12 months, has l ack of transportation kept you from medical appointments or from getting medications? No 03/28 In the past 12 months, has l ack of transportation kept you from meetings, work, or from getting things needed for daily living? No 04/24/2025 Housing Stability Answer Date Recorded What is your living situation today? I have a [facility] place to live 04/24/2025 Education Answer Date Recorded What is the highest level of school you have completed or the highest degree you have received? Master's degree (e.g., MA, MS, Tara, MEd, [employer], [employer]) 02/23/2021 Comments Unknown Sex and Gender Information Value Date Recorded Sex Assigned at Female 08/22/2021 7:27 PM CDT Legal Sex Female 12:29 PM [employer] Gender Identity Female 02/23/2021 9:42 PM CDT Sexual Orientation Straight 02/23/2021 9: 42 PM CDT Last Filed Vital Signs Vital Sign Reading Time Taken Comments Blood Pressure - - Pulse - - Temperature - - Respiratory Rate - - Oxygen Saturation - - Inhaled Oxygen Concentration - - Weight 70.8 kg (155 lb 15.6 oz) 04/27/2025 3:20 PM CDT Height 176 cm (5' 9.29) 04/27/2025 3:20 PM CDT Body Mass Index 22.84 04/27/2025 3:20 PM CDT Plan of Treatment Health Maintenance Due Date Last Done Comments CT Colonography 1979 Cologuard 1979 Colonoscopy 1979 Colorectal Cancer Screening 1979 FIT 1979 Fasting Glucose for Diabetes Screening 1979 HIV Screening 1979 Hepatitis C Screening 1979 Lipid (Cholesterol) Screening 1979 Mammogram 1979 Hepatitis B Vaccines (1 of 3 - 19+ 3-dose series) 1998 HPV Vaccines (1 - 3-dose SCDM series) 2006 Cervical/Vaginal Cancer Screening 08/27/2023 08/27/2020 Depression Screening (Annual PHQ-2) 10/26/2024 COVID-19 Vaccine (4 - 2024- season) 2025 09/17/2021, 12/20/2020, 11/22/2020 Influenza Vaccine (#1) 2025 3, 09/21/2012, 08/13/2011, Additional history exists DTaP,Tdap,and Td Vaccines (4 - Td or Tdap) 08/27/2030 08/27/2020, 08/29/2010, 01/10/2008, Additional history exists IPV Vaccines Aged Out No longer eligi ble based on patient's age to complete this topic Pneumococcal vaccine (0-49 years) Aged Out No longer eligible based on patient's age to complete this topic Medical Devices Implanted Type Area Developmental Writing Instructor Device Identifier Shelf Expiration Date Model / Serial / Lot Mirena Intrauterine Device Uterus Procedures Procedure Name Priority Date/Time Associated Diagnosis Comments MR BRAIN WITHOUT AND WITH IV CONTRAST RAD - Routine (most inpatients and all outpatients) 08/03/2025 8:09 AM CDT Mass Brain from Last 3 Months Results * MR Brain without and with IV Contrast (08/03/2025 8:09 AM CDT) Anatomical Region Laterality Modality Head, Brain, Neuroradiology RST LOS, Neuroradiology ARZ LOS, Neuroradiology FLA LOS N/A Magnetic Resonance Impressions 08/03/2025 10:59 AM CDT 1. 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 2. Ventriculomegaly, also unchanged. Narrative 08/03/2025 10:59 AM CDT EXAM: MR BRAIN WITHOUT AND WITH IV CONTRAST COMPARISON: Outside MR brain 04/20/2025. FINDINGS: Compared to the prior MRI, no significant change in the enlarged caliber of the lateral, third, and fourth ventricles. No discrete aqueductal web visualized on high-resolution T2-weighted imaging of the posterior fossa. No periventricular signal abnormality. 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 This has not significantly changed in size since the prior MRI on 04/20/2025, although this was only visible on some of the previous MRI pulse sequences, potentially limiting detection of very subtle changes. Right lateral posterior fossa arachnoid cyst with mild mass effect on the anterolateral right cerebellum. No evidence of infarct or prior hemorrhage. Major intracranial arterial flow voids preserved. The paranasal sinuses are well aerated. Procedure Note Mohinder Jo M.D., M.P.H. - 08/03/2025 EXAM: MR BRAIN WITHOUT AND WITH IV CONTRAST COMPARISON: Outside MR brain 04/20/2025. FINDINGS: Compared to the prior MRI, no significant change in the enlargedcaliber of the lateral, third, and fourth ventricles. No discreteaqueductal web visualized on high-resolution T2-weighted imaging of theposterior fossa. No periventricular signal abnormality. The multicystic pineal lesion measures in total 1.5 x 0.8 cm withenhancement of the peripheral and septated components. This has notsignificantly changed in size since the prior MRI on 04/20/2025, althoughthis was only visible on some of the previous MRI pulse sequences,potentially limiting detection of very subtle changes. Right lateral posterior fossa arachnoid cyst with mild mass effect on theanterolateral right cerebellum. No evidence of infarct or prior hemorrhage. Major intracranial arterialflow voids preserved. The paranasal sinuses are well aerated. IMPRESSION: 1. 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 2. Ventriculomegaly, also unchanged. Benito Sorensen M.D., Ph.D. IMG MRI PROCEDURES Reba l Result from Last 3 Months Insurance [facility] Care Teams Rda Relationship Specialty Start Date End Date Elsewhere, Pcp PCP - General Internal Medicine 07/27/25
--- OUTSIDE RECORDS SUMMARY | 2025-09-30 14:45 | XMS_ITS | Clinical Summary ---
Author Organization [facility] Address [address] [place] [address] Care Team Providers Care Gunite Nozzle Operator Name Role Phone Layla Brown Primary Care Provider [phone] Allergies Active Allergy Reactions Criticality Noted Date [...] on file Legal Sex Female 7:40 PM THERMAL SPRAY OPERATOR Gender Identity Not on file Sexual Orientation Not on file Last Filed Vital Signs Vital Sign Reading Time Taken Comments Blood Pressure 106/60 01/29/2021 2:52 PM CDT Pulse 56 01/29/2021 2:52 PM CDT Temperature 36.4 C (97.6 F) 05/21/2017 3:36 PM CDT Respiratory Rate - - Oxygen Saturation 100% 01/29/2021 2:52 PM CDT Inhaled Oxygen Concentration - - Weight 63.9 kg (140 lb 12.8 oz) 12/26/2020 1:48 PM THERMAL SPRAY OPERATOR Height 169 cm (5' 6.54) 03/12/2017 1:40 PM CDT Body Mass Index 22.36 03/12/2017 1:40 PM CDT Plan of Treatment Health Maintenance Due Date Last Done Comments Tetanus booster 1990 Depression screening for age 12+ 1991 HIV for age 15-65 1994 Hepatitis C screening for ag e 18-79 1997 Hepatitis B series for 19+ ( 1 of 3 - 19+ 3-dose series) 1998 HPV series for age 9-45 (1 - 3-dose SCDM series) 2006 BMI (ht and wt on same day) for age 18+ 03/12/2018 03/12/2017 Pap test for age 21-65 08/27/2023 , 08/27/2020, 10/30/2016 Colonoscopy through age 75 2024 Lipids for age 45-75 2024 Mammogram for age 45-75 2024 COVID-19 vaccine series (2024- season) 2025 Influenza Vaccine (#1) 2025 RSV vaccine for adults or (1 - 1-dose 75+ series) 2054 Pneumococcal series for age 6-49 Aged Out No longer eligible b ased on patient's age to complete this topic Procedures Procedure Name Priority Date/Time Associated Diagnosis Comments INDOOR LANDSCAPE ARCHITECT THIN PREP PAP SCREEN IMAGED Routine 08/27/2020 12:00 PM THERMAL SPRAY OPERATOR from Last 3 Months or Most Recently Relevant to Health Maintenance Results * INDOOR LANDSCAPE ARCHITECT THIN PREP PAP SCREEN IMAGED (08/27/2020 12:00 PM THERMAL SPRAY OPERATOR) Case Report Gynecologic Cytology Report Case: [id number] Authorizing Provider: Estrella Dietrich PA-C Collected: 08/27/2020 1200 Ordering Location: [facility] Received: 08/28/2020 0929 First Screen: Pooja Cabrales Specimen: INDOOR LANDSCAPE ARCHITECT ThinPrep Vial Screening, Cervical/Vaginal 08/31/2020 1:48 PM THERMAL SPRAY OPERATOR [facility] EN[facility] INTERPRETATION/ RESULT NEGATIVE FOR INTRAEPITHELIAL LESION OR MALIGNANCY (NIL) (none) 08/31/2020 1:48 PM THERMAL SPRAY OPERATOR [facility] [employer] [facility] ENTRAL LABORATORY at 1348 THERMAL SPRAY OPERATOR SPECIMEN ADEQUACY Satisfactory for evaluation No endocervical component seen 08/31/2020 1:48 PM THERMAL SPRAY OPERATOR [facility] [employer] [facility] HPV REQUEST HPV and PAP 08/31/2020 1:48 PM THERMAL SPRAY OPERATOR [facility] [employer] [facility] Date of LMP 08/07/2020 08/31/2020 1:48 PM THERMAL SPRAY OPERATOR [facility] [employer] [facility] Last Pap Date 10/30/2016 08/31/2020 1:48 PM THERMAL SPRAY OPERATOR [facility] Last Pap Result NIL 0 1:48 PM THERMAL SPRAY OPERATOR [facility] [employer] [facility] Menstrual Status Hormonally Suppressed 08/31/2020 1:48 PM THERMAL SPRAY OPERATOR [facility] Comment:IUD Additional Information 08/31/2020 1:48 PM THERMAL SPRAY OPERATOR [facility] Comment: Interpreted at [facility] [facility] - [address] [place] [address] [address] Automated Review Successful 08/31/2020 1:48 PM THERMAL SPRAY OPERATOR [facility] [employer] [facility] Comment:Specimen processed s uccessfully by automated commuter pilot device, ThinPrep Imaging System, [employer] ANCILLARY TESTING INDOOR LANDSCAPE ARCHITECT HPV Ordered, Please see separate report 08/31/2020 1:48 PM THERMAL SPRAY OPERATOR [facility] [employer] [facility] Note The pap test is [...] pre-malignant and malignant lesions. 08/31/2020 1:48 PM THERMAL SPRAY OPERATOR [facility] [employer] [facility] ENTRAL LABORATORY Other (Cervical/Vagina l) 08/27/2020 12:00 PM THERMAL SPRAY OPERATOR 08/28/2020 9:29 AM THERMAL SPRAY OPERATOR January Kaur CÁRDENAS PATHOLOGY/CYTOLOGY Final R esult [facility]TRAL LABORATORY [address] [place] [address], [place] from Last 3 Months or Most Recently Relevant to Health Maintenance Care Teams Gunite Nozzle Operator Relationship Specialty Start Date End Date Layla Brown PCP - General Family Practice 03/12/17
[2025-09-30 14:46] VITALS: BP 104/68; PULSE 69; RESP 16; TEMP 36.2; O2SAT 99; BMI 21.3
--- NOTE | 2025-09-30 14:59 | CRLHL7_ITS ---
For Patients: As a result of the Century Cures Act, medical imaging exams and procedure reports are released immediately into your electronic medical record. You may view this report before your referring provider. If you have questions, please contact your health care provider. INDICATION: Left-sided abdominal pain. TECHNIQUE: Axial intravenously infused CT cuts were performed above the diaphragm to the below the ischial tuberosities with infusion of 63 mL of Isovue 370. COMPARISON: 03/20/2022. FINDINGS: There is large amount stool throughout the colon. There is no CT evidence of diverticulosis or diverticulitis. There is a suture chain within the right lower quadrant. The anatomy is difficult to define due to a paucity of intra-abdominal fat. There is viscus favored to represent distended loop of terminal ileum with feculent contents versus this representing a portion of the cecum. There are occasional liver cysts. The spleen, pancreas, adrenals and kidneys appear normal. There no enlarged retroperitoneal or mesenteric lymph nodes. There is an IUD within uterus. The urinary bladder appears normal. There is no iliac or inguinal lymphadenopathy. IMPRESSION: 1. No CT evidence of diverticulosis or diverticulitis. 2. Large amount of stool throughout the colon. 3. There is a suture chain within the right lower quadrant. The anatomy is difficult to define due to a paucity of intra-abdominal fat. There is a viscus favored to represent distended loop of terminal ileum with feculent contents versus this representing a portion of the cecum. An elective small-bowel series could be considered to better define the anatomy and whether there is an abnormal distended loop of terminal ileum. Please note that all CT scans at this facility use dose modulation, iterative reconstruction, and/or weight-based dosing when appropriate to reduce radiation dose to as low as reasonably achievable. Dictated by Richy Caceres MD @ 09/30/2025 4:01:56 PM (Electronically Signed)
--- NOTE | 2025-09-30 15:00 | ED.ABDPAIN ---
HPI - Abdominal Pain General Chief Complaint: Abdominal Pain Stated Complaint: possible bowel obstruction Time Seen by Provider: 09/30/25 14:45 History of Present Illness HPI narrative: This 44-year-old female comes in reporting left-sided abdominal pain for the past 6 or 7 days. She states that the pain is rather constant. She wonders if she has a bowel obstruction but states that she is passing stool. She states that the stool seems more thin recently. She does not report any fever, nausea, vomiting, or dysuria symptoms. She states that she has had abdominal surgeries and has had bowel obstructions in the past. She arrives here with normal vital signs. Related Data Home Medications ?Medication ?Instructions ?Recorded ?Confirmed cholecalciferol (vitamin D3) 25 1,000 unit PO DAILY 02/19/23 04/10/25 mcg (1,000 unit) tablet Previous Rx's ?Medication ?Instructions ?Recorded vitamin B complex and vitamin C 1 cap PO QDAY #90 caps 08/06/22 no.20-folic acid 1 mg capsule (Triphrocaps) hyoscyamine sulfate 0.125 mg 0.125 mg PO BID-QID PRN dyspepsia 02/19/23 sublingual tablet #270 tabs sertraline 100 mg tablet 100 mg PO DAILY #90 tabs 09/19/24 ketorolac 10 mg tablet 10 mg PO TID 5 days #15 tabs 09/30/25 Allergies Allergy/AdvReac Type Severity Reaction Status Date / Time fluconazole (From Diflucan) Allergy Severe Blister Verified 04/10/25 12:31 Review of Systems Status of ROS Reports: 10 or more systems reviewed and unremarkable except as noted in History and below Narrative Constitutional: No fevers, no weight gain or loss. Eyes: No discharge. No vision changes. HENT: No congestion, no sore throat, no ear pain. Cardiovascular: No chest pain, no palpitations. Respiratory: No shortness of breath, no wheezes, no cough. Gastrointestinal: No vomiting, no diarrhea. Left-sided abdominal pain as described above. Genitourinary: No dysuria, no hematuria. Musculoskeletal: Normal range of motion. Skin: No rashes, no pruritis. Neurological: No dizziness, weakness, sensory change, speech change. Endo/Heme/Allergies: No bruising or bleeding. No polydipsia. Pysch: no suicidality, no anxiety, no insomnia. All other systems reviewed and are negative. 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 - Neoplasm of unspecified behavior of endocrine glands and other parts of nervous system (ICD-10) Dizziness ?R42 - Dizziness and giddiness (ICD-10) Soft tissue swelling ?R22.9 - Localized swelling, mass and lump, unspecified (ICD-10) Encounter for IUD insertion ?Z30.430 - Encounter for insertion of intrauterine contraceptive device (ICD-10) Abdominal pain ?R10.9 - Unspecified abdominal pain (ICD-10) Menorrhagia ?N92.0 - Excessive and frequent menstruation with regular cycle (ICD-10) Iron deficiency anemia ?D50.9 - Iron deficiency anemia, unspecified (ICD-10) Chronic abdominal pain ?R10.9 - Unspecified abdominal pain (ICD-10) ?G89.29 - Other chronic pain (ICD-10) Iron deficiency ?E61.1 - Iron deficiency (ICD-10) Femur fracture ?S72.90XA - Unspecified fracture of unspecified femur, initial encounter for closed fracture (ICD-10) B12 deficiency ?E53.8 - Deficiency of other specified B group vitamins (ICD-10) Abdominal wall pain ?R10.9 - Unspecified abdominal pain (ICD-10) Constipation ?K59.00 - Constipation, unspecified (ICD-10) Hx stress fracture ?Z87.312 - Personal history of (healed) stress fracture (ICD-10) Hematuria (2020) ?R31.9 - Hematuria, unspecified (ICD-10) Twin ?Z37.9 - Outcome of delivery, unspecified (ICD-10) Stress fracture of femur ?M84.353A - Stress fracture, unspecified femur, initial encounter for fracture (ICD-10) Pelvic adhesions ?N73.6 - Female pelvic peritoneal adhesions (postinfective) (ICD-10) Major depressive disorder ?F32.9 - Major depressive disorder, single episode, unspecified (ICD-10) Irritable bowel syndrome ?K58.9 - Irritable bowel syndrome without diarrhea (ICD-10) History of small bowel obstruction (2019) ?Z87.19 - Personal history of other diseases of the digestive system (ICD-10) Generalized anxiety disorder ?F41.1 - Generalized anxiety disorder (ICD-10) Gastroesophageal reflux disease ?K21.9 - Gastro-esophageal reflux disease without esophagitis (ICD-10) Anemia ?D64.9 - Anemia, unspecified (ICD-10) Surgical History History of endometrial biopsy ?Z92.89 - Personal history of other medical treatment (ICD-10) History of ?Z98.891 - History of uterine scar from previous surgery (ICD-10) Status post repair of ventral hernia ?Z98.890 - Other specified postprocedural states (ICD-10) ?Z87.19 - Personal history of other diseases of the digestive system (ICD-10) Status post exploratory laparotomy ?Z98.890 - Other specified postprocedural states (ICD-10) Family History Family/Other FH: mental illness Family/Other Alcohol dependence Mother High cholesterol Brother Addiction Social History Narrative: 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 Nonsmoker. What is your current living situation?: I presently have a place to live Problems where you live: no known problems Problems where you live details: n/a In the past 12 months, utilities in danger of being shut off: no In past 12 months, lack of transportation kept you from medical appts, meetings, work, or getting things needed for daily living: no In the past 12 mos, have been you worried that your food would run out before you had money to buy more?: never true In the past 12 mos, the food you bought just didn't last and you didn't have money to buy more?: never true Highest level of school completed/degree received: Master's degree Smoking Status: Never smoker Do you use any of these nicotine containing products: None Second hand tobacco smoke exposure: No How often do you have a drink containing alcohol: never AUDIT-C Alcohol total score: 0 Non-prescribed substance use: denies use How often does anyone, including family, friends and others, physically hurt you: never How often does anyone, including family, friends and others, insult or talk down to you: never How often does anyone, including family, friends and others, threaten you with harm: never How often does anyone, including family, friends and others, scream or curse at you: never service: No Exam Narrative: Exam Narrative: Constitutional: Well-developed, well-nourished, no acute distress. HEENT: Normocephalic, atraumatic. Neck: Normal range of motion. Nontender. Supple. Heart: Regular. No murmurs. Normal rate. Intact distal pulses. Lungs: Clear to auscultation. No chest discomfort. No wheezes, rhonchi, or rales. Abdomen: Normal bowel sounds. Tenderness in the left abdomen. No rebound tenderness. Genitalia: Deferred. Back: No midline tenderness. Normal range of motion. Extremities: Normal range of motion. No injury. Skin: Intact. No rash. Warm. No erythema or pallor. Neurologic: No altered sensation. No weakness. Alert and oriented. Psychiatric: No suicidality. No anxiety or depression. No insomnia. Nursing notes and vitals signs are reviewed. Const: Vital Signs, click to edit/add: Vital Signs - 24 hr 09/30/25 14:46 Temperature 97.1 F L Pulse Rate [Pulse Oximeter] 69 Respiratory Rate 16 Blood Pressure [Ri ght Upper Arm] 104/68 Pulse Oximetry 99 Oxygen Delivery Me thod Room Air Course Vital Signs Vital signs: Initial Vital Signs Temperature 97.1 F L 09/30/25 14:46 Temperature Source Temporal Artery Scan 09/30/25 14:46 Pulse Rate 69 09/30/25 14:46 Respiratory Rate 16 09/30/25 14:46 Blood Pressure 104/68 09/30/25 14:46 Blood Pressure Mean 80 09/30/25 14:46 Blood Pressure Position Sitting 09/30/25 14:46 Pulse Oximetry 99 09/30/25 14:46 Oxygen Delivery Method Room Air 09/30/25 14:46 Vital Signs Temperature 97.1 F L 09/30/25 14:46 Pulse Rate 69 09/30/25 14:46 Respiratory Rate 16 09/30/25 14:46 Blood Pressure 104/68 09/30/25 14:46 Pulse Oximetry 99 09/30/25 14:46 Oxygen Delivery Method Room Air 09/30/25 14:46 Temperature 97.1 F L 09/30/25 14:46 Pulse Rate 69 09/30/25 14:46 Respiratory Rate 16 09/30/25 14:46 Blood Pressure 104/68 09/30/25 14:46 Pulse Oximetry 99 09/30/25 14:46 Oxygen Delivery Method Room Air 09/30/25 14:46 MDM - Abdominal Pain MDM Narrative Medical decision making narrative: This patient comes in with abdominal pain as described above. He CT scan with IV contrast is ordered and labs are acquired. These all returned with normal results. A she does have a large amount of stool throughout her bowels and this most likely explains her discomfort. She states that she does use stool softeners or stimulants at times and she has used enemas in the past. I did advise her to use these [id number] resources again as this is likely with causing her discomfort. I did provide a prescription for Toradol. Lab Data Labs: Lab Results 09/30/25 Range/Units 15:14 WBC 6.49 (4.50-11.00) K/uL RBC 4.35 (4.00-5.20) m/uL Hgb 13.8 (12.0-16.0) gm/dL Hct 43.6 (33.0-51.0) % MCV 100 (80-100) fL MCH 32 (26-34) pg MCHC 32 (32-36) gm/dL RDW Coeff of Jono 12.3 (11.5-15.5) % Plt Count 149 (140-440) K/uL Neut % (Auto) 78.1 H (42.0-72.0) % Lymph % (Auto) 15.9 L (20-44) % Dale % (Auto) 4.8 (0.0-11.0) % Eos % (Auto) 0.8 (0.0-7.0) % Baso % (Auto) 0.2 (0.0-3.0) % Neut # (Auto) 5.10 (1.7-7.0) K/uL Lymph # (Auto) 1.00 (0.90-2.90) K/uL Dale # (Auto) 0.30 (0.00-0.90) K/UL Eos # (Auto) 0.05 (0.00-0.50) K/uL Baso # (Auto) 0.01 (0.00-0.30) K/uL Abs Immat Gran (auto) 0.01 (0.00-0.30) K/uL Imm/Tot Granulo (auto) 0.2 % Sodium 141 (135-149) mmol/L Potassium 3.8 (3.6-5.1) mmol/L Chloride 99 (96-114) mmol/L Carbon Dioxide 28 (20-32) mmol/L Anion Gap 14 (7-15) mEq/L BUN 17 (5-24) mg/dL Creatinine 0.8 (0.5-1.5) mg/dL Estimated Creat Clear 79.91 Estimated GFR 93 ml/min Glucose 90 (60-115) mg/dL Calcium 9.7 (8.4-10.6) mg/dL Imaging Data CT scan - abdomen: Radiologist's impression: 1. No CT evidence of diverticulosis or diverticulitis. 2. Large amount of stool throughout the colon. 3. There is a suture chain within the right lower quadrant. The anatomy is difficult to define due to a paucity of intra-abdominal fat. There is a viscus favored to represent distended loop of terminal ileum with feculent contents versus this representing a portion of the cecum. An elective small-bowel series could be considered to better define the anatomy and whether there is an abnormal distended loop of terminal ileum. Discharge Plan Discharge Clinical Impression: Abdominal pain Patient Disposition: Home, Self-Care Condition: Stable Additional Instructions: Take Toradol as needed and directed. Use [id number] medicines also as needed and directed for for improving her bowel regimen. Follow up with MD return if worsening. Prescriptions: New ketorolac 10 mg tablet 10 mg PO TID 5 Days Qty: 15 0RF No Action cholecalciferol (vitamin D3) 25 mcg (1,000 unit) tablet 1,000 unit PO DAILY hyoscyamine sulfate 0.125 mg tablet, sublingual 0.125 mg PO BID-QID PRN (Reason: dyspepsia) Qty: 270 0RF sertraline 100 mg tablet 100 mg PO DAILY Qty: 90 3RF Triphrocaps 1 mg capsule 1 cap PO QDAY Qty: 90 3RF Follow Up/Referrals: Hendricks,Shweta M, PRESSING DEPARTMENT SUPERVISOR [Primary Care Provider, Family Practice] Stand Alone Forms: MyHealth Info Instructions
[2025-09-30 15:32] LABS: Hematocrit* 43.6 % (33.0-51.0); Hemoglobin* 13.8 gm/dL (12.0-16.0); Immature Granulocytes Abs Auto 0.01 K/uL (0.00-0.30); Immature Granulocytes Pct Auto 0.2 %; Mean Corpuscular HGB Conc 32 gm/dL (32-36); Mean Corpuscular Hemoglobin 32 pg (26-34); Mean Corpuscular Volume 100 fL (80-100); RDW Coefficient of Variation % 12.3 % (11.5-15.5); Red Blood Count* 4.35 m/uL (4.00-5.20); White Blood Count* 6.49 K/uL (4.50-11.00)
[2025-09-30 15:43] LABS: Lymphocytes Absolute Auto 1.00 K/uL (0.90-2.90); Slide Review Reflex No
[2025-09-30 15:48] LABS: Chloride* 99 mmol/L (96-114); Potassium* 3.8 mmol/L (3.6-5.1); Sodium* 141 mmol/L (135-149)
[2025-09-30 15:51] LABS: Anion Gap 14 mEq/L (7-15); Blood Urea Nitrogen* 17 mg/dL (5-24); Calcium* 9.7 mg/dL (8.4-10.6); Carbon Dioxide* 28 mmol/L (20-32); Creatinine* 0.8 mg/dL (0.5-1.5); Est. Creatinine Clearance* 79.91; Estimated Glomerular Filt Rate 93 ml/min; Glucose* 90 mg/dL (60-115)
== END 2025-09-30 16:28 | disposition home or self-care (01) ==
PROVIDERS: Emergency Provider Emergency Medicine Emergency Medical Services; PCP Nurse Practitioner Family
DX: R10.9 Unspecified abdominal pain (principal)
CPT/HCPCS: 36415; 74177; 80048; 85025; 99284; 99285; Q9967

== ENCOUNTER 2025-10-25 08:08 | Outpatient (CLI) | payer OTHER, SELFPAY ==
[2025-10-27 23:44] LABS: HPV Source Cervix
[2025-10-31 09:12] LABS: Pap Test Digital Imaging Done
== END 2025-10-25 08:09 | disposition home or self-care (01) ==
PROVIDERS: PCP Nurse Practitioner Family; Visit Provider Nurse Practitioner Family
DX: Z11.51 Encounter for screening for human papillomavirus (HPV) (principal); Z11.3 Encounter for screening for infections with a predominantly sexual mode of transmission; Z13.6 Encounter for screening for cardiovascular disorders; Z13.1 Encounter for screening for diabetes mellitus
CPT/HCPCS: 80061; 82947; 87624; 87625; 88141; 88142; 88175